=== PATIENT | female | born 1935 | race Caucasian/White ===

== ENCOUNTER 2023-01-16 06:18 | Inpatient (IN) | payer OTHER ==
[~2023-01-16] VITALS: Ht 157.5 cm; Wt 66.2 kg
[~2023-01-16 06:18] MED LIST: INDA2.5T PO; LOSA100T58 PO
[2023-01-16] MEDS ORDERED: TRANEXAMIC ACID 20 ML ONE (06:36)
[2023-01-16] MEDS ORDERED: SUCCINYLCHOLINE CHLORIDE 20 MG/ML 10ML VIAL IV ONE (07:06)
[2023-01-16] MEDS ORDERED: ceFAZolin 2 GM/D5W100ml 100 ML IV ONE (07:12)
[2023-01-16] MEDS ORDERED: fentaNYL CITRATE 100 MCG/2 ML VL ONE ×3 (07:12→13:53)
[2023-01-16] MEDS ORDERED: MIDAZOLAM HCL 2MG/2ML 2ml VIAL (1mg/ml) ONE ×2 (07:13→11:34)
[2023-01-16] MEDS ORDERED: PROPOFOL 10 MG/ML 20 ML IV ONE ×2 (07:14→11:23)
[2023-01-16] MEDS ORDERED: fentaNYL CITRATE 5 ML ONE ×2 (07:18→09:44)
[2023-01-16] MEDS ORDERED: PHENYLEPHRINE HCL 10 MG/ML VL ONE (07:23)
[2023-01-16] MEDS ORDERED: LIDOCAINE 1% INJ PF 5ML AMP ONE (07:29)
[2023-01-16] MEDS ORDERED: ePHEDrine SULFATE 50 MG/ML AMP ONE (08:10)
[2023-01-16] MEDS ORDERED: DexAMETHasone SOD PHOS 10MG/1ML VIAL INJ ONE ×2 (08:33→12:33)
[2023-01-16] MEDS ORDERED: ONDANSETRON HCL 4 MG/2 ML VIAL ONE ×2 (08:33→12:33)
[2023-01-16] MEDS ORDERED: D5W/SOD CHLO 0.9% 1,000 ML IV SCH (11:15)
[2023-01-16] MEDS ORDERED: NITROGLYCERIN 0.4 MG SL TAB SL PRN ×2 (11:15→12:00)
[2023-01-16] MEDS ORDERED: ACETAMINOPHEN 325 MG TAB PO PRN (11:15)
[2023-01-16] MEDS ORDERED: ONDANSETRON HCL 4 MG/2 ML VIAL IV PRN ×2 (11:15)
[2023-01-16] MEDS ORDERED: MORPHINE SULFATE INJ 2 MG/ml SYRG IV PRN ×2 (11:15→12:00)
[2023-01-16] MEDS: ceFAZolin 1GM/50ML 50 ML IV SCH ×2 (11:15→18:51)
[2023-01-16] MEDS ORDERED: CYCLOBENZAPRINE HCL 10 MG TAB PO PRN (11:15)
[2023-01-16] MEDS ORDERED: MEPERIDINE HCL (25 MG/ML) 1ML VIAL IV PRN (11:15)
[2023-01-16] MEDS ORDERED: HYDROcodone-ACET 10/325MG TAB PO PRN (11:15)
[2023-01-16] MEDS: HYDROmorphone HCL 2 MG/ML VL/or syr IV PRN ×5 (11:42→13:25)
[2023-01-16] MEDS ORDERED: ROCURONIUM 10MG/ML 10ML VIAL IV ONE (12:54)
[2023-01-16] MEDS ORDERED: SUGAMMADEX 200mg/2ml Vial (100MG/ML) IV ONE (14:29)
[2023-01-16 15:15] VITALS: PULSE 70; RESP 20; O2SAT 96
[2023-01-16] MEDS: CYCLOBENZAPRINE HCL 10 MG TAB PO SCH (16:48)
[2023-01-16 17:00] VITALS: BP 144/65; PULSE 70; RESP 18; TEMP 97.3; O2SAT 100
[2023-01-16] MEDS ORDERED: PROMETHAZINE HCL 25 MG/ML 1ML IV PRN (17:00)
[2023-01-16 20:00] VITALS: PULSE 63
[2023-01-16] MEDS: SENNA 8.6 MG TAB PO SCH (21:00)
[2023-01-16] MEDS: FAMOTIDINE 20 MG TAB PO SCH (21:00)
[2023-01-16 22:00] VITALS: BP 125/59; PULSE 77; RESP 16; TEMP 97.7; O2SAT 100
[2023-01-16] MEDS ORDERED: DOCUSATE SOD 100 MG CAP PO SCH (22:00)
[2023-01-17] VITALS (7 sets, daily range): BP systolic 117–141; BP diastolic 9–71; PULSE 71–90; RESP 14–18; TEMP 97.9–98.3; O2SAT 93–100
[2023-01-17] MEDS: OXYCODONE W/ ACETAMINOPHEN 5/325MG TABLET PO PRN ×3 (05:47→19:42)
[2023-01-17 06:01] LABS: Anion Gap 7 (5-15); Calcium 8.9 mg/dL (8.5-10.1); Carbon Dioxide 26 mmol/L (20-30); Chloride 108 mmol/L (98-107); Sodium 141 mmol/L (136-145)
[2023-01-17 06:07] LABS: BUN/Creatinine Ratio 16.2 (10.0-20.0); Blood Urea Nitrogen 12 mg/dL (9-23); Glucose 85 mg/dL (74-106)
[2023-01-17 06:11] LABS: Basophils # (auto) 0 10 ^3/uL (0-0.2); Basophils % (auto) 0.1 % (0.0-2.0); Eosinophils # (auto) 0 10 ^3/uL (0-0.8); Hematocrit 30.2 % (36.0-46.0); Hemoglobin 10.2 g/dL (12.2-16.2); Lymphocytes # (auto) 1.3 10 ^3/uL (0.4-5.4); Lymphocytes % (auto) 9.9 % (10.0-50.0); Mean Corpuscular Hgb Conc. 33.6 g/dL (32.0-36.0); Mean Corpuscular Volume 89.3 fL (80.0-100.0); Monocytes # (auto) 0.7 10 ^3/uL (0-1.3); Monocytes % (auto) 5.4 % (0.0-12.0); Neutrophils # (auto) 10.8 10 ^3/uL (1.6-8.6); Neutrophils % (auto) 84.6 % (37.0-80.0); Red Blood Cells 3.39 10^6/uL (4.0-5.20); Red Cell Distribution Width 13.6 % (11.8-14.3); White Blood Cell 12.8 10^3/uL (4.4-10.8)
[2023-01-17] MEDS: CYCLOBENZAPRINE HCL 10 MG TAB PO SCH ×3 (08:27→16:23)
[2023-01-17] MEDS: LOSARTAN POTASSIUM 50 MG TAB PO SCH (08:29)
[2023-01-17] MEDS: FAMOTIDINE 20 MG TAB PO SCH ×2 (08:29→21:41)
[2023-01-17] MEDS: SENNA 8.6 MG TAB PO SCH (21:41)
[2023-01-18] VITALS (7 sets, daily range): BP systolic 124–137; BP diastolic 51–67; PULSE 69–93; RESP 15–19; TEMP 98.2–98.5; O2SAT 92–99
[2023-01-18] MEDS: FAMOTIDINE 20 MG TAB PO SCH ×2 (08:40→21:21)
[2023-01-18] MEDS: HYDROcodone-ACET 5/325MG TAB PO PRN ×3 (08:40→21:20)
[2023-01-18] MEDS: CYCLOBENZAPRINE HCL 10 MG TAB PO SCH ×3 (08:40→16:00)
[2023-01-18] MEDS: LOSARTAN POTASSIUM 50 MG TAB PO SCH (08:41)
[2023-01-18] MEDS: SENNA 8.6 MG TAB PO SCH (21:21)
[2023-01-19 04:42] LABS: Hematocrit 28.8 % (36.0-46.0); Hemoglobin 9.6 g/dL (12.2-16.2)
[2023-01-19 05:00] VITALS: BP 134/59; PULSE 77; RESP 16; TEMP 98.3; O2SAT 93
[2023-01-19 08:00] VITALS: PULSE 77; PULSE 96; RESP 16; O2SAT 92
[2023-01-19] MEDS: FAMOTIDINE 20 MG TAB PO SCH (09:44)
[2023-01-19] MEDS: CYCLOBENZAPRINE HCL 10 MG TAB PO SCH ×2 (09:44)
[2023-01-19] MEDS: LOSARTAN POTASSIUM 50 MG TAB PO SCH (09:44)
[2023-01-19 10:41] VITALS: BP 121/62; PULSE 96; RESP 16; TEMP 36.8; O2SAT 92
[2023-01-19] MEDS: HYDROcodone-ACET 5/325MG TAB PO PRN (13:07)
== END 2023-01-19 13:30 | disposition home health service (06) | DRG 460 ==
LOC: SUR 06:18 → TELE 11:10 → TELE-WESTW 15:11
PROVIDERS: ADMIT Orthopaedic Surgery; ATTEND Hospitalist
PROC: 0SG1071 Fusion of 2 or more Lumbar Vertebral Joints with Autologous Tissue Substitute, Posterior Approach, Posterior Column, Open Approach (ICD-10-PCS; 2023-01-16)
PROC: 01NB0ZZ Release Lumbar Nerve, Open Approach (ICD-10-PCS; 2023-01-16)
PROC: 00NY0ZZ Release Lumbar Spinal Cord, Open Approach (ICD-10-PCS; 2023-01-16)
PROC: 4A11X4G Monitoring of Peripheral Nervous Electrical Activity, Intraoperative, External Approach (ICD-10-PCS; 2023-01-16)
PROC: 0SG00K1 Fusion of Lumbar Vertebral Joint with Nonautologous Tissue Substitute, Posterior Approach, Posterior Column, Open Approach (ICD-10-PCS; principal; 2023-01-16 07:54)
DX: M48.061 Spinal stenosis, lumbar region without neurogenic claudication (principal); I11.9 Hypertensive heart disease without heart failure; K59.00 Constipation, unspecified; G89.29 Other chronic pain; M43.16 Spondylolisthesis, lumbar region; Z80.3 Family history of malignant neoplasm of breast; M51.16 Intervertebral disc disorders with radiculopathy, lumbar region; M51.36 Other intervertebral disc degeneration, lumbar region
CPT/HCPCS: 36415; 72100; 76000; 80048; 85014; 85018; 85025; 86850; 86900; 86901; 97110; 97116; 97163; 97530; G0378; J0330; J0690; J1100; J2250; J2405; J2704

== ENCOUNTER 2024-05-31 06:46 | Inpatient (IN) | payer OTHER ==
[~2024-05-31] VITALS: Ht 157.5 cm; Wt 75.2 kg
[~2024-05-31 06:46] MED LIST changes: +CLON0.1T PO; +LOSA-535 PO; -LOSA100T58 PO
[2024-05-31] MEDS: CELECOXIB 100 MG CAP ONE (07:06)
[2024-05-31] MEDS: ACETAMINOPHEN IV 100 ML IV ONE (07:07)
[2024-05-31] MEDS: ceFAZolin 2 GM/D5W50ml 50 ML IV ONE (07:07)
[2024-05-31] MEDS: PREGABALIN CAPSULE 75 MG CAP ONE (07:07)
[2024-05-31] MEDS ORDERED: HYDROmorphone HCL 2 MG/ML VL/or syr IV PRN (07:30)
[2024-05-31] MEDS ORDERED: MORPHINE SULFATE INJ 2 MG/ml SYRG IV PRN ×2 (07:30→13:00)
[2024-05-31] MEDS ORDERED: ONDANSETRON HCL 4 MG/2 ML VIAL IV PRN (07:30)
[2024-05-31] MEDS ORDERED: NITROGLYCERIN 0.4 MG SL TAB SL PRN (07:30)
[2024-05-31] MEDS ORDERED: LACTATED RINGER'S 1,000 ML IV SCH (07:30)
[2024-05-31] MEDS: ceFAZolin 1GM/50ML 50 ML IV SCH ×2 (07:30→16:17)
[2024-05-31] MEDS ORDERED: cloNIDine HCL 0.1 MG TAB PO SCH (07:30)
[2024-05-31] MEDS: VANCOMYCIN HCL 1000 MG VL ONE (07:38)
[2024-05-31] MEDS: TRANEXAMIC ACID 20 ML ONE (07:39)
[2024-05-31] MEDS: BUPIVACAINE 0.25% INJ 50ML VIAL ONE (07:39)
[2024-05-31] MEDS: ACETAMINOPHEN IV 1000 MG/100ML (10MG/ML) IV ONE (07:45)
[2024-05-31] MEDS: PREGABALIN CAPSULE 75 MG CAP PO ONE (07:45)
[2024-05-31] MEDS: CELECOXIB 100 MG CAP PO ONE (07:45)
[2024-05-31] MEDS: ROPIVACAINE 0.5% (5MG/ML) 20ML AMPULE IJ ONE (08:05)
[2024-05-31] MEDS ORDERED: fentaNYL CITRATE 100 MCG/2 ML VL ONE ×2 (08:07→08:33)
[2024-05-31] MEDS ORDERED: ONDANSETRON HCL 4 MG/2 ML VIAL ONE (08:18)
[2024-05-31] MEDS ORDERED: DexAMETHasone SOD PHOS 10MG/1ML VIAL INJ ONE (08:18)
[2024-05-31] MEDS ORDERED: ePHEDrine SULFATE 50 MG/ML AMP ONE (08:20)
[2024-05-31] MEDS ORDERED: PHENYLEPHRINE HCL 10 MG/ML VL ONE (08:20)
[2024-05-31] MEDS ORDERED: MORPHINE SULF PF 5 MG/10 ML VIAL ONE (08:21)
[2024-05-31] MEDS: DOCUSATE SOD 100 MG CAP PO SCH (10:00)
[2024-05-31] MEDS: LOSARTAN POTASSIUM 50 MG TAB PO SCH (10:00)
[2024-05-31] MEDS: INDAPAMIDE 2.5 MG PO SCH (10:00)
[2024-05-31] MEDS: ENOXAPARIN SOD 40 MG/0.4 ML SYRINGE SC SCH (10:00)
[2024-05-31] MEDS ORDERED: PATIENTS OWN MEDICATION (Losartan Potassium 100 MG) PO SCH (10:00)
--- NOTE | 2024-05-31 10:10 | DVH ---
RIGHT HIP RADIOGRAPH. CLINICAL INDICATION: Hip Pain. TECHNIQUE: 1 views of the right hip were obtained. FINDINGS: Right hip arthroplasty. IMPRESSION: 1. Right hip arthroplasty
[2024-05-31 10:16] VITALS: PULSE 90; RESP 12; O2SAT 99
[2024-05-31] MEDS ORDERED: MEPERIDINE HCL (25 MG/ML) 1ML VIAL IV PRN (10:30)
[2024-05-31] MEDS: HYDROmorphone HCL 2 MG/ML VL/or syr IV PRN (11:35)
[2024-05-31] MEDS: ACETAMINOPHEN IV 1000 MG/100ML (10MG/ML) IV PRN (12:00)
--- NOTE | 2024-05-31 12:43 | DVH ---
EXAM: XY PELVIS AP CLINICAL INDICATION: sp Right CHAZ TECHNIQUE: XY PELVIS AP Comparison: None FINDINGS/IMPRESSION: There is no evidence of acute fracture or dislocation. Right total hip arthroplasty. The alignment is anatomical. There is no radiopaque foreign body.
--- NOTE | 2024-05-31 12:53 | DVHINCON2 ---
Date of service: May 31, 2024 Reason for Consultation Postop medical management History of Present Illness This is a 88-year-old female with a hypertension osteoarthritis came to the hospital underwent successful elective right hip surgery. Postop hospitalist medical management is requested by orthopedic surgeon. Currently patient is back from surgery. Comfortable. Denies any chest pain shortness for breath. Other review of systems reviewed normal. Past Medical History Osteoarthritis, hypertension Past Surgical History None significant noted Family History: FH: breast cancer G8 MOTHER, FHx: lung disease G8 FATHER, Allergies: Coded Allergies: NO KNOWN ALLERGIES (Unverified , 01/14/23) Home Meds Active Scripts Lactulose (Lactulose) 10 Gm/15 Ml Amalia, 10 GM PO QPM PRN, #240 ML Prov:JUANITA LOWE MD 06/01/24 Reported Medications Clonidine Hydrochloride (Clonidine Hcl) 0.1 Mg Tab, 0.1 MG PO PRN, TAB 05/28/24 Indapamide (Indapamide) 2.5 Mg Tab, 2.5 MG PO DAILY, TAB 01/14/23 Losartan Potassium (Losartan Potassium) 100 Mg Tab, 100 MG PO DAILY, TAB 01/14/23 Current Medications Current Medications Medications (Trade) Dose Ordered Sig/Judi Route PRN Reason Start Time Stop Time Status Last Admin Clonidine HCl (Catapres Tablet) 0.1 mg PRN PO 05/31/24 07:30 Patient Own Medication 2.5 mg DAILY PO 05/31/24 10:00 Patient Own Medication 100 mg DAILY PO 05/31/24 10:00 UNV Lactated Ringer's 1,000 ml @ 100 mls/hr Q10H IV 05/31/24 07:30 Cefazolin Sodium 50 ml @ 50 mls/hr Q6H IV 05/31/24 07:30 05/31/24 20:29 Acetaminophen/ Hydrocodone Bitart ([place] 5/325MG Tab) 1 tab Q4HP PRN PO MODERATE PAIN (4-6 PAIN SCALE) 05/31/24 07:30 Hydromorphone HCl (Dilaudid Injection) 1 mg Q2HP PRN IV SEVERE PAIN (7-10 PAIN SCALE) 05/31/24 07:30 Ondansetron HCl (Zofran) 4 mg Q6HP PRN IV NAUSEA / VOMITING 05/31/24 07:30 Docusate Sodium (Colace Capsule) 100 mg Q12HR PO 05/31/24 10:00 Enoxaparin Sodium (Lovenox) 40 mg DAILY SC 05/31/24 10:00 Nitroglycerin (Ntrostat Sublingual) 0.4 mg Q5MINP PRN SL FOR CHEST PAIN 05/31/24 07:30 Morphine Sulfate 2 mg Q30M PRN IV FOR CHEST PAIN 05/31/24 07:30 Losartan Potassium (Cozaar Tablet) 100 mg DAILY PO 05/31/24 10:00 Acetaminophen (Ofirmev) 1,000 mg A99HOCO PRN IV PAIN SCALE 1-3 OR TEMP>100.4 05/31/24 10:30 05/31/24 11:04 DC 05/31/24 12:00 Hydromorphone HCl (Dilaudid Injection) 0.25 mg Q10M PRN IV SEVERE PAIN (7-10 PAIN SCALE) 05/31/24 10:30 05/31/24 11:11 DC 05/31/24 11:35 Meperidine HCl (Demerol Injection) 12.5 mg Q10M PRN IV MODERATE PAIN (4-6 PAIN SCALE) 05/31/24 10:30 05/31/24 11:04 DC Cefepime HCl 50 ml @ 12.5 mls/hr DAILY IV 06/01/24 10:00 Review of Systems No chest pain or shortness for breath. No fevers chills or sweats. Patient does have constipation issues. Vital Signs Vital Signs Date Time Temp Pulse Resp B/P (MAP) Pulse Ox O2 Delivery O2 Flow Rate FiO2 05/31/24 12:49 Room Air 99 05/31/24 11:30 5.0 05/31/24 10:16 90 12 99 05/31/24 10:16 97.4 116/58 (77) 97.4 Assessment Status post ORIF right hip. Incentive spirometry. Physical therapy evaluation. Pain and nausea medications. IV fluids. Hold her home blood pressure medications still blood pressure improves. Otherwise continue rest of supportive care and treatment and further clinical management per clinical course. Social Service evaluation for possible [facility] facility post surgery for hip rehab versus home with home health. Discussed with the patient regarding care plan. Problems(with codes): (1) Hypertension (2) Degenerative joint disease (DJD) of lumbar spine (3) Status post open reduction and internal fixation (ORIF) of fracture (4) Constipation Plan discussed with: Other JUANITA LOWE MD May 31, 2024 12:53
[2024-05-31] MEDS: LACTATED RINGER'S 1,000 ML IV SCH (13:00)
[2024-05-31] MEDS: ONDANSETRON HCL 4 MG/2 ML VIAL IV ONE (13:30)
[2024-05-31 14:25] VITALS: BP 124/62; PULSE 70; RESP 10; TEMP 98.1; O2SAT 99
[2024-05-31 15:39] VITALS: BP 124/62; PULSE 70; RESP 12; TEMP 98.7; O2SAT 99
--- NOTE | 2024-05-31 16:20 | DVHOP2 ---
Operative Report - 2 Report Details Date: 05/31/24 Preop Diagnosis: Right hip osteoarthritis Postop Diagnosis: as above Surgeon: Akin Arroyo MD Manager Internal: Bandar STATON Anesthesiologist: Caro LOWRY Anesthesia: Regional Consent: The patient was informed of the risks and benefits of the procedure. These include but are not limited to complications of anesthesia, postoperative infection, incomplete relief of symptoms, recurrence of symptoms, damage to blood vessels, nerves and tendons, deep venous thrombosis, pulmonary embolism and possible need for repeat surgery in the future. Estimated Blood Loss: 300 cc Name of Procedure Performed Right total hip arthroplasty, computer navigation Procedure Details Procedure Details: FINDINGS: Extensive degenerative disease with grade IV changes INDICATION: This patient has failed non-operative treatments for hip arthritis and is now indicated for a total hip replacement. Preoperatively in the waiting area as well as in the office, I had a long discussion with the patient regarding the plan, the expected outcome, the risks, benefits, and alternatives of surgery. The risks include, but are not limited to, infection (which may require future surgery and removal of implants) , bleeding (which may require a transfusion), damage to nerves, arteries, veins, tendons, muscles and other adjacent structures. Also discussed the possibilities of dislocation, leg-length discrepancy, intraoperative fractures, implant loosening, heterotopic bone formation, and revision for variety of reasons, and medical complications etc. This was discussed at length and consent has been obtained. DESCRIPTION OF PROCEDURE: In the preoperative holding area, the consent was reviewed and the appropriate extremity was verified by the patient and marked with my initials. The patient was then transferred to the operating theatre. Appropriate anesthet ia was induced. All bony prominences were well padded. A time out was performed verifying the side and site of surgery according to standard protocol. Preoperative antibiotics were given. Tranexamic acid was given. The patient was then placed in the lateral decubitus position and fixed with rigid pelvic fixation. All bony prominences were well padded and an axillary roll was placed. The affected hip area was then prepped and draped in the usual sterile fashion. Using an 11-blade, three stab incisions were made over the iliac crest. Two threaded guide pins were inserted into the crest confirming to be in bone. The pelvic array was attached to the pins and tightened. We made a standard posterolateral incision sharply through the skin and carried our dissection down through subcutaneous tissue to the underlying fascia achieving hemostasis where necessary. We incised the fascia in line with our incision. We identified and protected the sciatic nerve. We took down the external rotators and hip capsule from their insertion into the greater trochanter, tagged them and retracted them posteriorly for further protection of the sciatic nerve. A check point was placed into the greater trochanter and the hip center and leg length length were registered. We then dislocated the femoral head and performed an osteotomy of the femoral neck in accordance with our pre-operative plan. The labrum was excised with a long-handle knife, and we exposed the acetabular rim and cotyloid fossa. We then reamed up to our final size in accordance with the preoperative plan. We copiously irrigated and then impacted the final cup into position. We co nfirmed the position with the robotic navigation guidance. We placed three acetabular dome screws into the posterior-superior quadrant in the usual fashion. We irrigated the cup and impacted the liner, checking to make sure it was well seated. Attention was then turned to the femur. We used a box osteotome followed by a canal finder to gain entry to the canal. Intramedullary contents were suctioned and care was taken to ensure they did not touch the tissues. We sequentially reamed until good cortical contact, then broached up to out final size. We trialed with the appropriate femoral neck and head and reduced the hip. The hip was taken through a full range of motion. The hip soft tissues were examined in extension and external rotation, the anterior capsule and IT band were palpated, and combined anteversion was determined to be 40 degrees. The hip was stable at maximum flexion, at 90 degrees of flexion and 45 degrees of internal rotation and the position of sleep. Leg lengths were restored as shown using the computer navigation, and the trial LTC matched preoperative and intraoperative templating. The hip was then dislocated and trial components removed. We copiously irrigated the wound and impacted the final femoral stem into position. The femoral head was impacted onto a clean and dry trunion and confirmed to be seated. The hip was reduced ensuring to tissues in the acetabular cup. We again brought it through a full functional range of motion and there was no evidence for dislocation, instability, or impingement. The checkpoint was removed. A dilute betadine solution (17.5mL in 500mL saline) was used to wash the joint and left to sit for 3 minutes. This was then irrigated out with copious amounts of pulse lavage. We sprinkled 1g vancomycin powder below the fascia and 1g above the fascia. We copiously irrigated the wound and soft tissues. The short external rotators and capsule were repaired to the greater trochanter through drill holes, and the quadratus was repaired. We palpated the sciatic nerve in continuity without tension. The fascia was closed with vicryl and a barbed suture. We closed over the fascia with vicryl suture and re-approximated the skin with {Sutures/celsa:04315}. A sterile dressing was placed. We returned the patient to the supine position. We verified all lower extremity compartments were soft and compressible and that we had intact distal pulses and checked our leg length hoahaoism. We took an AP Pelvis in the operating room, which we reviewed prior to transfer. The patient was then transferred to the recovery room in stable condition. Condition Good Disposition Still a Patient AKIN ARROYO MD May 31, 2024 16:20
[2024-05-31 17:00] VITALS: BP 117/59; PULSE 70; RESP 15; TEMP 80.1; O2SAT 94
[2024-05-31 21:00] VITALS: BP 130/61; PULSE 63; RESP 18; TEMP 97.6; O2SAT 100
[2024-06-01 01:00] VITALS: BP 116/54; PULSE 75; RESP 20; TEMP 97.3; O2SAT 99
[2024-06-01 05:00] VITALS: BP 111/50; PULSE 65; RESP 18; TEMP 97.6; O2SAT 99
[2024-06-01 07:19] LABS: Calcium 9.4 mg/dL (8.7-10.4); Chloride 104 mmol/L (98-107); Sodium 136 mmol/L (136-145)
[2024-06-01 07:20] LABS: Anion Gap 6 (5-15); Basophils # (auto) 0 10 ^3/uL (0-0.2); Basophils % (auto) 0.1 % (0.0-2.0); Carbon Dioxide 26 mmol/L (20-31); Eosinophils # (auto) 0 10 ^3/uL (0-0.8); Hematocrit 30.1 % (36.0-46.0); Hemoglobin 10.2 g/dL (12.2-16.2); Lymphocytes # (auto) 1.1 10 ^3/uL (0.4-5.4); Lymphocytes % (auto) 9.4 % (10.0-50.0); Mean Corpuscular Hemoglobin 29.5 pg (28.0-32.0); Mean Corpuscular Hgb Conc. 33.7 g/dL (32.0-36.0); Mean Corpuscular Volume 87.6 fL (80.0-100.0); Monocytes # (auto) 0.9 10 ^3/uL (0-1.3); Monocytes % (auto) 7.3 % (0.0-12.0); Neutrophils # (auto) 10.2 10 ^3/uL (1.6-8.6); Neutrophils % (auto) 83.2 % (37.0-80.0); Platelet Count (auto) 250 10^3/uL (140-450); Red Blood Cells 3.44 10^6/uL (4.0-5.20); Red Cell Distribution Width 13.7 % (11.8-14.3); White Blood Cell 12.2 10^3/uL (4.4-10.8)
[2024-06-01 07:25] LABS: BUN/Creatinine Ratio 19.3 (10.0-20.0); Blood Urea Nitrogen 17 mg/dL (9-23); Glucose 97 mg/dL (74-106)
--- NOTE | 2024-06-01 07:45 | DVHPN2 ---
Progress Note Date Seen: Jun 01, 2024 Medical Necessity Reason Pt with a Central, PICC or Fol: No Subjective Patient reports: No new complaints Objective vital signs Vital Sign Date Time Temp Pulse Resp B/P (MAP) Pulse Ox O2 Delivery O2 Flow Rate FiO2 06/01/24 05:00 97.6 65 18 111/50 (70) 99 97.6 05/31/24 20:00 Room Air* 0 21 Total Intake and Output 05/31/24 05/31/24 06/01/24 15:00 23:00 07:00 Intake Total 220 ml 560 ml 200 ml Balance 220 ml 560 ml 200 ml medications Current Medications Medications Dose Ordered Sig/Judi Route Start Time Stop Time Status Last Admin Dose Admin Clonidine HCl 0.1 mg PRN PO 05/31/24 07:30 Patient Own Medication 2.5 mg DAILY PO 05/31/24 10:00 Patient Own Medication 100 mg DAILY PO 05/31/24 10:00 UNV Acetaminophen/ Hydrocodone Bitart 1 tab Q4HP PRN PO 05/31/24 07:30 Ondansetron HCl 4 mg Q6HP PRN IV 05/31/24 07:30 Docusate Sodium 100 mg Q12HR PO 05/31/24 10:00 05/31/24 21:47 Enoxaparin Sodium 40 mg DAILY SC 05/31/24 10:00 Nitroglycerin 0.4 mg Q5MINP PRN SL 05/31/24 07:30 Morphine Sulfate 2 mg Q30M PRN IV 05/31/24 07:30 Losartan Potassium 100 mg DAILY PO 05/31/24 10:00 Cefepime HCl 50 ml @ 12.5 mls/hr DAILY IV 06/01/24 10:00 Morphine Sulfate 2 mg Q3HPRN PRN IV 05/31/24 13:00 Examination: GENERAL:Normal, MSK:Abnormal laboratory and microbiology Laboratory Tests 06/01/24 06:42 Test 06/01/24 06:42 Range/Units Serum Glucose 97 74-106 mg/dL Problem List/Assessment/Plan Problem List/Assessment/Plan 88 year old female who is s/p Right CHAZ POD 1 1. Pain control 2. DVT ppx 3. Physical therapy 4. WBAT RLE with use of walker Plan discussed with: Patient Date of Service: Jun 01, 2024 Billing Provider: GEORGE GUARDADO MD Common Visit Codes: NOT BILLABLE MARGE DESOUZA KINDERGARTEN INSTRUCTIONAL ASSISTANT Jun 01, 2024 07:45
[2024-06-01 08:00] VITALS: PULSE 72; RESP 16; O2SAT 99
[2024-06-01 09:00] VITALS: BP 114/54; PULSE 72; RESP 17; TEMP 97.3; O2SAT 99
[2024-06-01] MEDS: CEFEPIME 1GM/ 50ML 50 ML IV SCH (10:31)
[2024-06-01] MEDS: HYDROcodone-ACET 5/325MG TAB PO PRN (10:32)
[2024-06-01] MEDS ORDERED: LACT10SO3 PO (11:44)
--- NOTE | 2024-06-01 11:55 | DVHDS2 ---
Discharge Summary Date of Admission May 31, 2024 at 07:28 Date of Discharge: Jun 01, 2024 Labs/Diagnostic Data: Laboratory Results Test 06/01/24 06:42 White Blood Count 12.2 10^3/uL (4.4-10.8) Red Blood Count 3.44 10^6/uL (4.0-5.20) Hemoglobin 10.2 g/dL (12.2-16.2) Hematocrit 30.1 % (36.0-46.0) Mean Corpuscular Volume 87.6 fL (80.0-100.0) Mean Corpuscular Hemoglobin 29.5 pg (28.0-32.0) Mean Corpuscular Hemoglobin Concent 33.7 g/dL (32.0-36.0) Red Cell Distribution Width 13.7 % (11.8-14.3) Platelet Count 250 10^3/uL (140-450) Mean Platelet Volume 7.1 fL (6.9-10.8) Neutrophils (%) (Auto) 83.2 % (37.0-80.0) Lymphocytes (%) (Auto) 9.4 % (10.0-50.0) Monocytes (%) (Auto) 7.3 % (0.0-12.0) Eosinophils (%) (Auto) 0.0 % (0.0-7.0) Basophils (%) (Auto) 0.1 % (0.0-2.0) Neutrophils # (Auto) 10.2 10 ^3/uL (1.6-8.6) Lymphocytes # (Auto) 1.1 10 ^3/uL (0.4-5.4) Monocytes # (Auto) 0.9 10 ^3/uL (0-1.3) Eosinophils # (Auto) 0 10 ^3/uL (0-0.8) Basophils # (Auto) 0 10 ^3/uL (0-0.2) Nucleated Red Blood Cells 0.0 % Sodium Level 136 mmol/L (136-145) Potassium Level 4.0 mmol/L (3.5-5.1) Chloride Level 104 mmol/L (98-107) Carbon Dioxide Level 26 mmol/L (20-31) Anion Gap 6 (5-15) Blood Urea Nitrogen 17 mg/dL (9-23) Creatinine 0.88 mg/dL (0.550-1.02) Glomerular Filtration Rate Calc 64 mL/min (>90) BUN/Creatinine Ratio 19.3 (10.0-20.0) Serum Glucose 97 mg/dL (74-106) Calcium Level 9.4 mg/dL (8.7-10.4) Other Laboratory Tests 06/01/24 06:42 Brief Hx & Hospital Course: This 88-year-old female with a hypertension osteoarthritis came to the hospital underwent elective right hip surgery. Postop overnight patient did well. Today she participate with the physical therapy walked apparently about 40-50 feet with a walker in the hallway. She was able to go to restroom on her own without difficulty. Family is at bedside. Given she was ambulating and feeling better it is felt she could be safely discharged home with home physical therapy. She has a good family support at home. Patient already has a walker and physical therapy apparently has been arranged with orthopedic surgeon per the son who is at bedside. Patient however does have constipation therefore she was advised to take the lactulose and enemas as she takes at home. Patient is advised to continue the aspirin and [place] pain medication as she was prescribed by orthopedic surgeon. She was also told to follow up with the surgeon postop in two weeks. Patient and family verbalized understanding over hospital diagnosis, treatment she received, discharge medications, discharge instructions and agree with follow-up plan of care as mentioned. Operations or Procedures Operative Report - 2 Report Details Date: 05/31/24 Surgeon: Akin Arroyo MD Consent: The patient was informed of the risks and benefits of the procedure. These include but are not limited to complications of anesthesia, postoperative infection, incomplete relief of symptoms, recurrence of symptoms, damage to blood vessels, nerves and tendons, deep venous thrombosis, pulmonary embolism and possible need for repeat surgery in the future. Procedure Details Procedure Details: FINDINGS: Extensive degenerative disease with grade IV changes INDICATION: This patient has failed non-operative treatments for hip arthritis and is now indicated for a total hip replacement. Preoperatively in the waiting area as well as in the office, I had a long discussion with the patient regarding the plan, the expected outcome, the risks, benefits, and alternatives of surgery. The risks include, but are not limited to, infection (which may require future surgery and removal of implants) , bleeding (which may require a transfusion), damage to nerves, arteries, veins, tendons, muscles and other adjacent structures. Also discussed the possibilities of dislocation, leg-length discrepancy, intraoperative fractures, implant loosening, heterotopic bone formation, and revision for variety of reasons, and medical complications etc. This was discussed at length and consent has been obtained. DESCRIPTION OF PROCEDURE: In the preoperative holding area, the consent was reviewed and the appropriate extremity was verified by the patient and marked with my initials. The patient was then transferred to the operating theatre. Appropriate anesthetia was induced. All bony prominences were well padded. A time out was performed verifying the side and site of surgery according to standard protocol. Preoperative antibiotics were given. Tranexamic acid was given. The patient was then placed in the lateral decubitus position and fixed with rigid pelvic fixation. All bony prominences were well padded and an axillary roll was placed. The affected hip area was then prepped and draped in the usual sterile fashion. Using an 11-blade, three stab incisions were made over the iliac crest. Two threaded guide pins were inserted into the crest confirming to be in bone. The pelvic array was attached to the pins and tightened. We made a standard posterolateral incision sharply through the skin and carried our dissection down through subcutaneous tissue to the underlying fascia achieving hemostasis where necessary. We incised the fascia in line with our incision. We identified and protected the sciatic nerve. We took down the external rotators and hip capsule from their insertion into the greater trochanter, tagged them and retracted them posteriorly for further protection of the sciatic nerve. A check point was placed into the greater trochanter and the hip center and leg length length were registered. We then dislocated the femoral head and performed an osteotomy of the femoral neck in accordance with our pre-operative plan. The labrum was excised with a long-handle knife, and we exposed the acetabular rim and cotyloid fossa. We then reamed up to our final size in accordance with the preoperative plan. We copiously irrigated and then impacted the final cup into position. We confirmed the position with the robotic navigation guidance. We placed three acetabular dome screws into the posterior-superior quadrant in the usual fashion. We irrigated the cup and impacted the liner, checking to make sure it was well seated. Attention was then turned to the femur. We used a box osteotome followed by a canal finder to gain entry to the canal. Intramedullary contents were suctioned and care was taken to ensure they did not touch the tissues. We sequentially reamed until good cortical contact, then broached up to out final size. We trialed with the appropriate femoral neck and head and reduced the hip. The hip was taken through a full range of motion. The hip soft tissues were examined in extension and external rotation, the anterior capsule and IT band were palpated, and combined anteversion was determined to be 40 degrees. The hip was stable at maximum flexion, at 90 degrees of flexion and 45 degrees of internal rotation and the position of sleep. Leg lengths were restored as shown using the computer navigation, and the trial LTC matched preoperative and intraoperative templating. The hip was then dislocated and trial components removed. We copiously irrigated the wound and impacted the final femoral stem into position. The femoral head was impacted onto a clean and dry trunion and confirmed to be seated. The hip was reduced ensuring to tissues in the acetabular cup. We again brought it through a full functional range of motion and there was no evidence for dislocation, instability, or impingement. The checkpoint was removed. A dilute betadine solution (17.5mL in 500mL saline) was used to wash the joint and left to sit for 3 minutes. This was then irrigated out with copious amounts of pulse lavage. We sprinkled 1g vancomycin powder below the fascia and 1g above the fascia. We copiously irrigated the wound and soft tissues. The short external rotators and capsule were repaired to the greater trochanter through drill holes, and the quadratus was repaired. We palpated the sciatic nerve in continuity without tension. The fascia was closed with vicryl and a barbed suture. We closed over the fascia with vicryl suture and re-approximated the skin with {Sutures/celsa:[id number]}. A sterile dressing was placed. We returned the patient to the supine position. We verified all lower extremity compartments were soft and compressible and that we had intact distal pulses and checked our leg length episcopal. We took an AP Pelvis in the operating room, which we reviewed prior to transfer. The patient was then transferred to the recovery room in stable condition. Condition Good Condition at Discharge: Stable Final Diagnosis/Problems List Status post ORIF for hip fracture Discharge Disposition: Home with Health Services Discharge Instruct/Medications Diet: Consistent carbohydrate, Cardiac 2g Na,low cholest Activity: No Restrictions, As Tolerated Follow Up/Referral: Dr. Akin Arroyo in two weeks for post hip surgery follow up Medications: Home medications and as prescribed New Medications: Lactulose (Lactulose) 10 Gm/15 Ml Amalia 10 GM PO QPM PRN, #240 ML Continued Medications: Clonidine Hydrochloride (Clonidine Hcl) 0.1 Mg Tab 0.1 MG PO PRN, TAB Indapamide (Indapamide) 2.5 Mg Tab 2.5 MG PO DAILY, TAB Losartan Potassium (Losartan Potassium) 100 Mg Tab 100 MG PO DAILY, TAB Discharge Statement: "Patient was advised to return to the ER or call 911 if any headaches, dizziness, shortness of breath, chest pain, abdominal pain, bleeding, fevers, or worsening of medical condition. Patient was counseled about treatment plan, medications, possible side effects, patient�verbalized understanding. All questions were answered to the best of my ability. This discharge took greater then 30 minutes in planning, reviewing documentation, counseling the patient, and discussing with other team members." ASSESSMENT ASSESSMENT Assessment Status post ORIF for hip fracture JUANITA LOWE MD Jun 01, 2024 11:55
[2024-06-01 12:41] VITALS: BP 109/46; PULSE 66; RESP 16; TEMP 98.7; O2SAT 96
[2024-06-01 13:00] VITALS: BP 109/50; PULSE 69; RESP 19; TEMP 97.3; O2SAT 100
== END 2024-06-01 14:10 | disposition home health service (06) | DRG 482 ==
LOC: SUR 06:46 → OVERFLOW 07:28 → EAST 14:49
PROVIDERS: ADMIT Orthopaedic Surgery Adult Reconstructive Orthopaedic Surgery; ATTEND Orthopaedic Surgery Adult Reconstructive Orthopaedic Surgery
PROC: 0QS604Z Reposition Right Upper Femur with Internal Fixation Device, Open Approach (ICD-10-PCS; principal; 2024-05-31 08:06)
DX: M16.11 Unilateral primary osteoarthritis, right hip (principal); K59.00 Constipation, unspecified; I10 Essential (primary) hypertension; M51.369 Other intervertebral disc degeneration, lumbar region without mention of lumbar back pain or lower extremity pain; Z80.3 Family history of malignant neoplasm of breast; Z79.899 Other long term (current) drug therapy
CPT/HCPCS: 36415; 72170; 73501; 80048; 85025; 86850; 86900; 86901; 97116; 97162; 97530; G0378; J0131; J1100; J2405; J3490